=== PATIENT | male | born 1965 | race African-American/Black ===

== ENCOUNTER 2021-06-17 10:29 | Outpatient (CLI) | payer BC, SELFPAY ==
--- NOTE | 2021-06-17 11:00 | NEURO_ITS ---
Impression: # Complains of numbness of bottom of right foot. # Normal nerve conduction study. # No Tarsal Tunnel Syndrome. # Normal needle/EMG exam. # Clinical correlation recommended. Nerve Conduction Studies Anti Sensory Summary Table Stim Site NR Peak (ms) P-T Amp (?V) Site1 Site2 Delta-P (ms) Dist (cm) Vipul (m/s) Right Sup Fibular Anti Sensory (Ant Lat Mall) 14 cm 3.5 22.0 14 cm Ant Lat Mall 3.5 16.0 46 Right Sural Anti Sensory (Lat Mall) Calf 3.3 1.5 Calf Lat Mall 3.3 16.0 48 Motor Summary Table Stim Site NR Onset (ms) O-P Amp (mV) Site1 Site2 Delta-0 (ms) Dist (cm) Vipul (m/s) Right Lateral Plantar Motor (ADM) Med Mall 5.2 0.7 Right Peroneal Motor (Vastus Med) Ankle 4.6 3.3 Popit Ankle 9.4 42.0 45 Popit 14.0 2.8 Right Tibial Motor Run #1 (Abd Andrew Brev) Ankle 5.2 1.0 Knee Ankle 9.6 47.0 49 Knee 14.8 0.4 F Wave Studies NR F-Lat (ms) L-R F-Lat (ms) Right Peroneal (Mrkrs) (EDB) 57.55 Right Tibial (Mrkrs) (Abd Hallucis) 58.44 EMG Side Muscle Nerve Root Ins Act Fibs Amp Dur Recrt Comment Right AntTibialis Dp Br Fibular L4-5 Nml Nml Nml Nml Nml Right Gastroc Tibial S1-2 Nml Nml Nml Nml Nml Right Fibularis Long Sup Br Fibular L5-S1 Nml Nml Nml Nml Nml Right Flex Dig Long Tibial L5-S2 Nml Nml Nml Nml Nml Right Ext Dig Brev Dp Br Fibular L5, S1 Nml Nml Nml Nml Nml MTDD
== END 2021-06-17 10:30 | disposition home or self-care (01) ==
LOC: ANHNEURO 10:38
PROVIDERS: PCP Family Medicine
DX: G57.51 Tarsal tunnel syndrome, right lower limb (principal)
CPT/HCPCS: 95886; 95909